=== PATIENT | female | born 1955 | race Caucasian/White ===

== ENCOUNTER → 2016-09-10 | Outpatient (CLI) | payer OTHER | LOC: NM 10:10 | DX: R10.84 Generalized abdominal pain (principal); R93.3 Abnormal findings on diagnostic imaging of other parts of digestive tract | CPT/HCPCS: 78264; A9541 ==

== ENCOUNTER 2020-06-29 05:50 | Observation (INO) | payer MEDICARE, OTHER ==
[~2020-06-29] VITALS: Ht 167.6 cm; Wt 79.4 kg
[~2020-06-29 05:50] MED LIST: ANTIVERT 25MG T25 MG PO
[2020-06-29 06:25] LABS: RED BLOOD COUNT 4.13 M/UL (4.00-5.10); WHITE BLOOD COUNT 6.9 K/UL (4.5-11.0)
[2020-06-29] MEDS ORDERED: METFORMIN HCL1000 MG PO (11:07)
[2020-06-29] MEDS ORDERED: BYSTOLIC10 MG PO (11:07)
[2020-06-29] MEDS ORDERED: HYDROCHLOROTHIA25 MG PO (11:08)
[2020-06-29] MEDS ORDERED: COZAAR100 MG PO (11:08)
[2020-06-29] MEDS ORDERED: CATAPRES 0.1MG0.1 MG PO (11:08)
[2020-06-29] MEDS ORDERED: NEXIUM20 MG PO (11:09)
[2020-06-29] MEDS ORDERED: BENADRYL 25MG C25 MG PO (11:09)
[2020-06-29] MEDS ORDERED: FLONASE ALLER15.8 ML (11:10)
[2020-06-30 05:36] LABS: HEMOGLOBIN 12.4 gm/dl (12.3-15.3); RED BLOOD COUNT 3.97 M/UL (4.00-5.10); WHITE BLOOD COUNT 5.7 K/UL (4.5-11.0)
[2020-06-30] MEDS ORDERED: CATAPRES 0.1MG0.1 MG PO (14:07)
[2020-06-30] MEDS ORDERED: K-DUR TAB 20 M20 MEQ PO (14:11)
== END 2020-06-30 17:18 | disposition home or self-care (01) ==
LOC: ER1 05:50 → CDU 09:32 → M/S 10:57
PROVIDERS: Emergency Medicine; Physician Assistant Medical; ADMIT Internal Medicine
DX: I10 Essential (primary) hypertension (principal); E87.6 Hypokalemia; E83.42 Hypomagnesemia; E11.9 Type 2 diabetes mellitus without complications; K21.9 Gastro-esophageal reflux disease without esophagitis; J45.909 Unspecified asthma, uncomplicated; Z20.822 Contact with and (suspected) exposure to COVID-19; Z83.3 Family history of diabetes mellitus; Z82.49 Family history of ischemic heart disease and other diseases of the circulatory system; Z88.0 Allergy status to penicillin; Z88.1 Allergy status to other antibiotic agents; Z88.2 Allergy status to sulfonamides; Z88.8 Allergy status to other drugs, medicaments and biological substances; Z79.84 Long term (current) use of oral hypoglycemic drugs; Z79.899 Other long term (current) drug therapy
CPT/HCPCS: 36415; 71045; 80048; 80053; 82550; 82553; 82962; 83735; 83874; 83880; 84100; 84132; 84484; 85025; 85027; 93005; 96372; 96374; 96375; 96376; 99284; G0378; J0360; J3475; U0002

== ENCOUNTER → 2020-07-11 | Outpatient (CLI) | payer MEDICARE, OTHER ==
[~2020-07-11] MED LIST changes: +BENADRYL 25MG C25 MG PO; +BYSTOLIC10 MG PO; +CATAPRES 0.1MG0.1 MG PO; +COZAAR100 MG PO; +FLONASE ALLER15.8 ML; +HYDROCHLOROTHIA25 MG PO; +K-DUR TAB 20 M20 MEQ PO; +METFORMIN HCL1000 MG PO; +NEXIUM20 MG PO
[2020-07-13 09:12] LABS: CREATININE, URINE 108.1 mg/dL (Not Estab.)
== END ==
LOC: US 14:43
PROVIDERS: Internal Medicine Nephrology
DX: N18.9 Chronic kidney disease, unspecified (principal); M10.9 Gout, unspecified; N26.1 Atrophy of kidney (terminal)
CPT/HCPCS: 80053; 81001; 82043; 82570; 84156; 84550

== ENCOUNTER → 2020-08-27 | Outpatient (CLI) | payer MEDICARE, OTHER | LOC: KOH-I 13:20 | DX: J32.9 Chronic sinusitis, unspecified (principal) | CPT/HCPCS: 70486 ==

== ENCOUNTER → 2021-03-05 | Outpatient (CLI) | payer MEDICARE, OTHER | LOC: HEART 5 08:30 | DX: I11.0 Hypertensive heart disease with heart failure (principal); I50.32 Chronic diastolic (congestive) heart failure; I34.0 Nonrheumatic mitral (valve) insufficiency | CPT/HCPCS: 93306 ==

== ENCOUNTER → 2021-07-30 | Outpatient (CLI) | payer MEDICARE, OTHER | LOC: OPSV 12:00 | DX: E83.42 Hypomagnesemia (principal) | CPT/HCPCS: 96365; 96366; J3475 ==

== ENCOUNTER → 2021-08-18 | Outpatient (CLI) | payer MEDICARE, OTHER ==
[~2021-08-18] VITALS: Ht 167.6 cm; Wt 78.5 kg
== END ==
LOC: OPSV 11:37
DX: R79.0 Abnormal level of blood mineral (principal)
CPT/HCPCS: 96365; 96366; J3475

== ENCOUNTER → 2021-08-28 | Outpatient (CLI) | payer MEDICARE, OTHER | LOC: OPSV 12:00 | DX: R79.0 Abnormal level of blood mineral (principal) | CPT/HCPCS: 96365; 96366; J3475 ==

== ENCOUNTER → 2021-09-12 | Outpatient (CLI) | payer MEDICARE, OTHER ==
[~2021-09-12] VITALS: Ht 167.6 cm; Wt 78.5 kg
== END ==
LOC: OPSV 10:40
DX: E83.42 Hypomagnesemia (principal)
CPT/HCPCS: 96365; 96366; J3475

== ENCOUNTER → 2021-09-25 | Outpatient (CLI) | payer MEDICARE, OTHER | LOC: OPSV 10:30 | DX: E83.42 Hypomagnesemia (principal) | CPT/HCPCS: 96365; 96366; J3475 ==

== ENCOUNTER → 2021-10-07 | Outpatient (CLI) | payer MEDICARE, OTHER ==
[~2021-10-07] VITALS: Ht 167.6 cm; Wt 78.5 kg
== END ==
LOC: OPSV 11:35
DX: E83.42 Hypomagnesemia (principal)
CPT/HCPCS: 96365; 96366; J3475

== ENCOUNTER 2021-10-14 16:13 | Emergency (ER) | payer MEDICARE, OTHER ==
[2021-10-14 16:54] LABS: HEMOGLOBIN 11.7 gm/dl (12.3-15.3); RED BLOOD COUNT 3.7 M/UL (4.00-5.10); WHITE BLOOD COUNT 4.8 K/UL (4.5-11.0)
== END 2021-10-14 21:50 | disposition home or self-care (01) ==
LOC: ER1 16:13
PROVIDERS: Emergency Medicine
DX: E83.42 Hypomagnesemia (principal); E11.22 Type 2 diabetes mellitus with diabetic chronic kidney disease; N18.30 Chronic kidney disease, stage 3 unspecified; R53.83 Other fatigue; Z88.0 Allergy status to penicillin
CPT/HCPCS: 71045; 80053; 81001; 82550; 82553; 83735; 84439; 84443; 84484; 85025; 87086; 93005; 96374; 99284; J3475

== ENCOUNTER → 2021-10-20 | Outpatient (CLI) | payer MEDICARE, OTHER ==
[~2021-10-20] VITALS: Ht 167.6 cm; Wt 78.5 kg
== END ==
LOC: OPSV 12:00
DX: E83.42 Hypomagnesemia (principal)
CPT/HCPCS: 96365; 96366; J3475

== ENCOUNTER → 2021-11-03 | Outpatient (CLI) | payer MEDICARE, OTHER ==
[~2021-11-03] VITALS: Ht 167.6 cm; Wt 78.5 kg
== END ==
LOC: OPSV 10:53
DX: E83.42 Hypomagnesemia (principal)
CPT/HCPCS: 96365; 96366; J3475

== ENCOUNTER → 2021-11-20 | Outpatient (CLI) | payer MEDICARE, OTHER ==
[~2021-11-20] VITALS: Ht 167.6 cm; Wt 78.5 kg
== END ==
LOC: OPSV 10:28
DX: E83.42 Hypomagnesemia (principal)
CPT/HCPCS: 96365; 96366; J3475

== ENCOUNTER → 2021-12-09 | Outpatient (CLI) | payer MEDICARE, OTHER ==
[~2021-12-09] VITALS: Ht 167.6 cm; Wt 78.5 kg
== END ==
LOC: OPSV 09:00
DX: E83.42 Hypomagnesemia (principal)
CPT/HCPCS: 96365; 96366; J3475

== ENCOUNTER → 2021-12-19 | Outpatient (CLI) | payer MEDICARE, OTHER | LOC: LAB 10:18 | DX: E83.42 Hypomagnesemia (principal) | CPT/HCPCS: 36415; 83735 ==

== ENCOUNTER → 2021-12-23 | Outpatient (CLI) | payer MEDICARE, OTHER | LOC: OPSV 11:45 | DX: E83.42 Hypomagnesemia (principal) | CPT/HCPCS: 96365; 96366; J3475 ==

== ENCOUNTER → 2022-01-02 | Outpatient (CLI) | payer MEDICARE, OTHER | LOC: LAB 12:27 | DX: E83.42 Hypomagnesemia (principal) | CPT/HCPCS: 36415; 83735 ==

== ENCOUNTER → 2022-01-06 | Outpatient (CLI) | payer MEDICARE, OTHER ==
[~2022-01-06] VITALS: Ht 167.6 cm; Wt 78.5 kg
== END ==
LOC: OPSV 11:48
DX: E83.42 Hypomagnesemia (principal)
CPT/HCPCS: 96365; 96366; J3475

== ENCOUNTER → 2022-01-20 | Outpatient (CLI) | payer MEDICARE, OTHER | LOC: OPSV 11:25 | DX: E83.42 Hypomagnesemia (principal) | CPT/HCPCS: 96365; 96366; J3475 ==

== ENCOUNTER → 2022-01-30 | Outpatient (CLI) | payer MEDICARE, OTHER | LOC: LAB 08:11 | DX: E83.42 Hypomagnesemia (principal) | CPT/HCPCS: 36415; 83735 ==

== ENCOUNTER → 2022-02-03 | Outpatient (CLI) | payer MEDICARE, OTHER | LOC: OPSV 11:31 | DX: E83.42 Hypomagnesemia (principal) | CPT/HCPCS: 96365; 96366; J3475 ==

== ENCOUNTER → 2022-02-16 | Outpatient (CLI) | payer MEDICARE, OTHER | LOC: LAB 11:25 | DX: E83.42 Hypomagnesemia (principal) | CPT/HCPCS: 36415; 83735 ==

== ENCOUNTER → 2022-02-17 | Outpatient (CLI) | payer MEDICARE, OTHER ==
[~2022-02-17] VITALS: Ht 167.6 cm; Wt 78.5 kg
== END ==
LOC: OPSV 09:46
DX: E83.42 Hypomagnesemia (principal)
CPT/HCPCS: 96365; 96366; J3475

== ENCOUNTER → 2022-02-27 | Outpatient (CLI) | payer MEDICARE, OTHER | LOC: LAB 09:25 | DX: E83.42 Hypomagnesemia (principal) | CPT/HCPCS: 36415; 83735 ==

== ENCOUNTER → 2022-03-03 | Outpatient (CLI) | payer MEDICARE, OTHER ==
[~2022-03-03] VITALS: Ht 167.6 cm; Wt 78.5 kg
== END ==
LOC: OPSV 11:50
DX: E83.42 Hypomagnesemia (principal)
CPT/HCPCS: 96365; 96366; J3475

== ENCOUNTER → 2022-03-13 | Outpatient (CLI) | payer MEDICARE, OTHER | LOC: LAB 10:27 | DX: E83.42 Hypomagnesemia (principal) | CPT/HCPCS: 36415; 83735 ==